=== PATIENT | female | born 1955 | race Caucasian/White ===

== ENCOUNTER 2019-11-27 10:34 | Emergency (ER) | payer BC ==
[2019-11-27] MEDS ORDERED: HYDROCODONE/APAP 5/325 MG TAB ONE (11:14)
--- NOTE | 2019-11-27 13:06 | RAD REPORT ---
EXAM DESCRIPTION: RAD - Hip Left 2 View - 11/27/2019 12:17 pm CLINICAL HISTORY: PAIN, acute onset COMPARISON: No comparisons FINDINGS: AP and frogleg views of the left hip were obtained. There is no fracture or dislocation. No AVN or focal femoral head abnormality seen. Degenerative kerr ges are present along the superior acetabular rim. No acute left hemipelvis finding. Prominent overlying soft tissue limits detail. No periarticular abnormality seen. IMPRESSION: Degenerative change along the superior acetabular rim. No acute findings seen.
[2019-11-27] MEDS ORDERED: LIDOCAINE 4% PATCH ONE (13:11)
--- NOTE | 2019-11-27 13:14 | ER ---
Nurse's Notes 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 Ebola Screen: No symptoms or risks identified at this time. Initial Sepsis Screen: Does the patient meet any 2 criteria? No. Patient's initial sepsis screen is negative. Does the patient have a suspected source of infection? No. Patient's initial sepsis screen is negative. Risk Assessment: Do you want to hurt yourself or someone else? Patient reports no desire to harm self or others. Onset of symptoms was November 27, 2019. 10:46 Method Of Arrival: Ambulatory hb 10:46 Acuity: ANGEL 4 hb Historical: - Allergies: 10:51 No Known Allergies; hb - Home Meds: 10:51 multivitamin with minerals oral oral [Active]; levothyroxine 137 mcg tab once daily hb [Active]; hydroxychloroquine 200 mg oral tab 2 times per day [Active]; sulfasalazine 500 mg Oral tab 1 tab twice a day [Active]; Prolia 60 mg/mL subcutaneous syrg 1 mL every 6 mo [Active]; Folic Acid Oral once daily [Active]; prednisone 10 mg Oral tab once daily [Active]; - PMHx: 10:51 Osteoporosis; RA; hb - PSHx: 10:51 Hysterectomy; Carpal Tunnel Repair; Tonsillectomy; hb - Immunization history:: Adult Immunizations up to date. - Social history:: Smoking status: Patient denies any tobacco usage or history of. Screenin:25 Abuse screen: Denies threats or abuse. Nutritional screening: No deficits noted. Tuberculosis screening: No symptoms or risk factors identified. Fall Risk None identified. Assessment: 11:00 General: Appears in no apparent distress. Behavior is calm, cooperative. Pain: Complains of pain in left hip Pain does not radiate. Pain Quality of pain is described as aching, Pain began 2 hours ago. Aggravated by weight bearing. Neuro: Level of Consciousness is awake, alert, Oriented to person, place, time, situation. Cardiovascular: Capillary refill < 3 seconds Patient's skin is warm and dry. Respiratory: Airway is patent Respiratory effort is even, unlabored, Respiratory pattern is regular, symmetrical. GI: No signs and/or symptoms were reported involving the gastrointestinal system. : No signs and/or symptoms were reported regarding the genitourinary system. EENT: Derm: No signs and/or symptoms reported regarding the dermatologic system. Musculoskeletal: Circulation, motion, and sensation intact. Capillary refill < 3 seconds, Range of motion: intact in all extremities. 12:00 Reassessment: Pt awaiting results from radiology. ah 12:15 Reassessment: Patient and/or family updated on plan of care and expected duration. Pain ah level reassessed. Patient is alert, oriented x 3, equal unlabored respirations, skin warm/dry/pink. Patient states symptoms have improved. Vital Signs: 10:46 BP 134 / 79; Pulse 78; Resp 16; Temp 97.8; Pulse Ox 99% on R/A; Weight 104.33 kg; hb Height 5 ft. 6 in. (167.64 cm); Pain 3/10; 11:56 BP 120 / 72; Pulse 73; Resp 18; Pulse Ox 92% ; ah 13:00 BP 106 / 74; Pulse 80; Resp 18; Pulse Ox 93% ; ah 10:46 Body Mass Index 37.12 (104.33 kg, 167.64 cm) hb ED Course: 10:41 Patient arrived in ED. am2 10:41 Bill Randall MD is Private Physician. am2 10:48 Triage completed. hb 10:51 Arm band placed on. hb 10:52 Kenneth Cortes NP is PHCP. pm1 10:52 Segundo Calderon MD is Attending Physician. pm1 11:05 Aiyana Amador, RN is Primary Nurse. ah 12:18 Hip Left 2 View XRAY In Process Unspecified. EDMS 13:00 No provider procedures requiring assistance completed. Patient did not have IV access ah during this emergency room visit. 13:26 Patient has correct armband on for positive identification. Bed in low position. Call light in reach. Side rails up X 1. Administered Medications: 11:10 Drug: [place] 5 mg-325 mg 1 tabs Route: PO; ah 13:35 Follow up: Response: No adverse reaction; Pain is decreased 13:07 Drug: Lidoderm 5 % (700 mg/patch) 1 patches Route: Topical; Site: affected area; 13:35 Follow up: Response: No adverse reaction Outcome: 13:11 Discharge ordered by . pm1 13:36 Discharged to home ambulatory. 13:36 Condition: good 13:36 Discharge instructions given to patient, Instructed on discharge instructions, follow up and referral plans. medication usage, Demonstrated understanding of instructions, follow-up care, medications, Prescriptions given X 2. 13:37 Patient left the ED. Signatures: Dispatcher [employer] EDMS Kenneth Cortes NP PATENT PROSECUTION PARALEGAL pm1 Aarti Brooks, RN RN Nadeen Starr am2 Aiyana Amador, RN RN
--- NOTE | 2019-11-27 13:14 | EDPHYS ---
Physician Documentation [facility] Name: Prudence Quinteros Age: 63 yrs Sex: Female : 1955 Arrival Date: 11/27/2019 Time: 10:41 Bed 19 Private MD: Bill Randall B ED Physician Segundo Calderon Historical: - Allergies: 11/26 10:51 No Known Allergies; hb - Home Meds: 10:51 multivitamin with minerals oral oral [Active]; levothyroxine 137 mcg tab once daily hb [Active]; hydroxychloroquine 200 mg oral tab 2 times per day [Active]; sulfasalazine 500 mg Oral tab 1 tab twice a day [Active]; Prolia 60 mg/mL subcutaneous syrg 1 mL every 6 mo [Active]; Folic Acid Oral once daily [Active]; prednisone 10 mg Oral tab once daily [Active]; - PMHx: 10:51 Osteoporosis; RA; hb - PSHx: 10:51 Hysterectomy; Carpal Tunnel Repair; Tonsillectomy; hb - Immunization history:: Adult Immunizations up to date. - Social history:: Smoking status: Patient denies any tobacco usage or history of. Vital Signs: 10:46 BP 134 / 79; Pulse 78; Resp 16; Temp 97.8; Pulse Ox 99% on R/A; Weight 104.33 kg; hb Height 5 ft. 6 in. (167.64 cm); Pain 3/10; 11:56 BP 120 / 72; Pulse 73; Resp 18; Pulse Ox 92% ; ah 13:00 BP 106 / 74; Pulse 80; Resp 18; Pulse Ox 93% ; ah 10:46 Body Mass Index 37.12 (104.33 kg, 167.64 cm) hb MDM: 10:52 Patient medically screened. pm1 12:26 Data reviewed: vital signs. Data interpreted: Pulse oximetry: on room air is 99 %. pm1 Interpretation: normal. 13:11 Counseling: I had a detailed discussion with the patient and/or guardian regarding: the pm1 historical points, exam findings, and any diagnostic results supporting the discharge/admit diagnosis, radiology results, the need for outpatient follow up, to return to the emergency department if symptoms worsen or persist or if there are any questions or concerns that arise at home. 11/26 11:01 Order name: Hip Left 2 View XRAY; Complete Time: 13:11 pm1 Administered Medications: 11:10 Drug: [place] 5 mg-325 mg 1 tabs Route: PO; 13:35 Follow up: Response: No adverse reaction; Pain is decreased 13:07 Drug: Lidoderm 5 % (700 mg/patch) 1 patches Route: Topical; Site: affected area; 13:35 Follow up: Response: No adverse reaction Disposition: 11/27/19 13:11 Discharged to Home. Impression: Pain in left hip. - Condition is Stable. - Discharge Instructions: Joint Pain, Hip Pain. - Prescriptions for Lidoderm 5 % Topical adhesive patch,medicated - apply 1 patch by TRANSDERMAL route once daily As needed; 30 Transdermal Patch. Tylenol- Codeine #3 300-30 mg Oral Tablet - take 2 tablets by ORAL route every 6 hours As needed; 20 tablet. - Medication Reconciliation Form, Thank You Letter, Antibiotic Education, Prescription Opioid Use form. - Follow up: Emergency Department; When: As needed; Reason: Worsening of condition. Follow up: Private Physician; When: 2 - 3 days; Reason: Recheck today's complaints, Continuance of care, Re-evaluation by your physician. - Problem is new. - Symptoms have improved. Signatures: Dispatcher [employer] EDKenneth Graham NP SPEECH AND HEARING CLINIC DIRECTOR pm1 Aarti Brooks, TANA RN Aiyana Amador RN RN Corrections: (The following items were deleted from the chart) 13:37 13:11 11/27/2019 13:11 Discharged to Home. Impression: Pain in left hip. Condition is ah Stable. Forms are Medication Reconciliation Form, Thank You Letter, Antibiotic Education, Prescription Opioid Use. Follow up: Emergency Department; When: As needed; Reason: Worsening of condition. Follow up: Private Physician; When: 2 - 3 days; Reason: Recheck today's complaints, Continuance of care, Re-evaluation by your physician. Problem is new. Symptoms have improved. pm1
[2019-11-27 13:43] VITALS: TEMP 97.8
[2019-11-27 13:45] VITALS: BP 106/74; O2SAT 93
== END 2019-11-27 13:37 | disposition home or self-care (01) ==
LOC: ER 10:34
DX: M25.552 Pain in left hip (principal)
CPT/HCPCS: 99283

== ENCOUNTER 2020-01-15 10:32 | Inpatient (IN) | payer BC ==
--- NOTE | 2020-01-15 11:29 | ER ---
Nurse's Notes [facility] Name: Prudence Quinteros Age: 64 yrs Sex: Female : 1955 Arrival Date: 01/15/2020 Time: 10:33 Bed 25 Private MD: Diagnosis: Coronavirus infection, unspecified;Pneumonia, unspecified organism;Hypoxemia Presentation: 01/14 10:35 Chief complaint: Patient states: 2 WK FEVER, DX COVID + 1 WK AGO, NOW WITH DYSPNEA. bp Coronavirus screen: Surgical mask placed on patient. Patient moved to private room, placed in contact and droplet isolation with eye protection until further assessment. Patient reports a cough. Patient reports shortness of breath or difficulty breathing. Patient reports a measured and/or subjective temperature greater than 100.4F. Patient reports contact with known and/or suspected case of COVID-19. Ebola Screen: No symptoms or risks identified at this time. Initial Sepsis Screen: Does the patient meet any 2 criteria? HR > 90 bpm. No. Patient's initial sepsis screen is negative. Does the patient have a suspected source of infection? No. Patient's initial sepsis screen is negative. Risk Assessment: Do you want to hurt yourself or someone else? Patient reports no desire to harm self or others. Onset of symptoms is unknown. 10:35 Method Of Arrival: Ambulatory bp 10:35 Acuity: ANGEL 2 bp Triage Assessment: 10:35 General: Appears in no apparent distress. uncomfortable, ill, obese, Behavior is bp cooperative, appropriate for age, anxious. Pain: Denies pain. EENT: No deficits noted. Neuro: No deficits noted. Cardiovascular: Rhythm is sinus tachycardia. Respiratory: Reports shortness of breath cough that is Onset: The symptoms/episode began/occurred at an unknown time. the patient has moderate shortness of breath. GI: No signs and/or symptoms were reported involving the gastrointestinal system. : No signs and/or symptoms were reported regarding the genitourinary system. Derm: No deficits noted. Musculoskeletal: No deficits noted. Historical: - Allergies: 10:51 No Known Allergies; bp - Home Meds: 10:51 sulfasalazine 500 mg Oral tab 1 tab twice a day [Active]; Prolia 60 mg/mL subcutaneous bp syrg 1 mL every 6 mo [Active]; prednisone 10 mg Oral tab once daily [Active]; multivitamin with minerals Oral [Active]; levothyroxine 137 mcg tab once daily [Active]; hydroxychloroquine 200 mg Oral tab 2 times per day [Active]; folic acid 1 mg oral tab 1 tab once daily [Active]; simvastatin 20 mg Oral tab 1 tab once daily [Active]; - PMHx: 10:51 RA; Osteoporosis; POLYMYALGIA RHEUMATICA; bp - PSHx: 10:51 Tonsillectomy; Hysterectomy; bp - Immunization history:: Adult Immunizations up to date. - Social history:: Smoking status: Patient denies any tobacco usage or history of. - Family history:: not pertinent. - Hospitalizations: : No recent hospitalization is reported. Screenin:35 Abuse screen: Denies threats or abuse. Denies injuries from another. Nutritional bp screening: No deficits noted. Tuberculosis screening: No symptoms or risk factors identified. Fall Risk None identified. Assessment: 10:35 General: SEE TRIAGE NOTE. bp 11:30 Reassessment: VS STABLE BUT PT DESAT WITH EXERTION. Cardiovascular: Rhythm is sinus bp tachycardia. Respiratory: Airway is patent Respiratory effort is even, labored, Breath sounds are coarse bilaterally. 12:27 Reassessment: ADMIT INITIATED. VS STABLE ON MONITOR. bp 14:00 Reassessment: PT PLACED ON NASAL CANNULA FOR COMFORT. VS STABLE ON MONITOR. bp 15:16 Reassessment: VS STABLE ON MONITOR. ADMIT IN PROCESS. bp 17:00 General: PT MOVED TO ER HOLD, SEE [facility]. bp Vital Signs: 10:35 BP 124 / 84; Pulse 110; Resp 22; Temp 97.7; Pulse Ox 93% on R/A; Weight 104.33 kg; bp Height 5 ft. 6 in. (167.64 cm); 11:30 BP 129 / 84; Pulse 109; Resp 32; Pulse Ox 93% ; bp 12:26 BP 125 / 69; Pulse 107; Resp 31; Pulse Ox 94% ; bp 13:17 BP 123 / 78; Pulse 105; Resp 23; Pulse Ox 90% on R/A; bp 15:14 BP 116 / 84; Pulse 104; Resp 21; Pulse Ox 94% on 2 lpm NC; bp 16:00 BP 126 / 69; Pulse 110; Resp 28; Temp 98.3; Pulse Ox 94% ; bp 17:00 BP 116 / 83; Pulse 100; Resp 28; Pulse Ox 93% ; bp 10:35 Body Mass Index 37.12 (104.33 kg, 167.64 cm) bp ED Course: 10:33 Patient arrived in ED. as 10:33 Be Paulino MD is Attending Physician. rn 10:35 Arm band placed on. bp 10:35 Patient has correct armband on for positive identification. Bed in low position. Call bp light in reach. Side rails up X2. 10:48 Keith Hoyt, TANA is Primary Nurse. bp 10:50 Triage completed. bp 11:10 Inserted saline lock: 20 gauge in right forearm, using aseptic technique. Blood bp collected. 11:27 Patrick Veronica DO is Hospitalizing Provider. rn 11:42 CXR XRAY In Process Unspecified. EDMS 17:40 No provider procedures requiring assistance completed. Patient admitted, IV remains in bp place. 18:51 Type And Screen Sent. [facility] 18:51 T\T\S collected, blood band applied to patient. 5 Administered Medications: 11:10 Drug: Decadron - Dexamethasone 10 mg Route: IVP; Site: right forearm; bp 12:25 Follow up: Response: Marked relief of symptoms bp Outcome: 11:28 Decision to Hospitalize by Provider. rn 17:41 Admitted to ER Hold. Please see [facility] for further documentation. bp 07 17:38 Patient left the ED. sv Signatures: Dispatcher [employer] EDMS Yue Millard RN RN sv Martinez, Amelia as Nieto, Roman, MD MD rn Martinez, Maria [facility] Keith Hoyt RN RN bp Corrections: (The following items were deleted from the chart) 07 12:28 12:26 Reassessment: VS STABLE BUT PT DESAT WITH EXERTION bp bp 12:28 12:26 Cardiovascular: Rhythm is sinus tachycardia bp bp 12:28 12:26 Respiratory: Airway is patent Respiratory effort is even, labored, Breath sounds bp are coarse bilaterally. bp 15:14 12:26 BP 125 / 69; Pulse 107bpm; Resp 31bpm; Temp 94F; bp bp
--- NOTE | 2020-01-15 11:29 | EDPHYS ---
Physician Documentation [facility] Name: Prudence Quinteros Age: 64 yrs Sex: Female : 1955 Arrival Date: 01/15/2020 Time: 10:33 Bed 25 Private MD: ED Physician Be Paulino HPI: 01/14 10:51 This 64 yrs old Female presents to ER via Ambulatory with complaints of rn Shortness Of Breath - covid+. 10:51 The patient has shortness of breath at rest, with light activity. Onset: The rn symptoms/episode began/occurred 1 week(s) ago. Duration: The symptoms are continuous. The patient's shortness of breath is aggravated by exertion, is alleviated by nothing. Severity of symptoms: At their worst the symptoms were moderate in the emergency department the symptoms are unchanged. The patient has not experienced similar symptoms in the past. The patient has been recently seen by a physician:. Seen by PCP recently, diagnosed with COVID, with COVID as well but not ill, patient reports increased sob at rest and worse with exertion, + fatigue and loose stool, + loss of sense of taste and smell. No chronic lung problems, but is on steroids and plaquenil for RA. . Historical: - Allergies: 10:51 No Known Allergies; bp - Home Meds: 10:51 sulfasalazine 500 mg Oral tab 1 tab twice a day [Active]; Prolia 60 mg/mL subcutaneous bp syrg 1 mL every 6 mo [Active]; prednisone 10 mg Oral tab once daily [Active]; multivitamin with minerals Oral [Active]; levothyroxine 137 mcg tab once daily [Active]; hydroxychloroquine 200 mg Oral tab 2 times per day [Active]; folic acid 1 mg oral tab 1 tab once daily [Active]; simvastatin 20 mg Oral tab 1 tab once daily [Active]; - PMHx: 10:51 RA; Osteoporosis; POLYMYALGIA RHEUMATICA; bp - PSHx: 10:51 Tonsillectomy; Hysterectomy; bp - Immunization history:: Adult Immunizations up to date. - Social history:: Smoking status: Patient denies any tobacco usage or history of. - Family history:: not pertinent. - Hospitalizations: : No recent hospitalization is reported. ROS: 10:51 Constitutional: Negative for fever, chills, and weight loss, Eyes: Negative for injury, rn pain, redness, and discharge, Cardiovascular: Negative for chest pain, palpitations, and edema, Respiratory: + sob and cough Abdomen/GI: Negative for abdominal pain, nausea, vomiting, + loose stool MS/Extremity: Negative for injury and deformity, Skin: Negative for injury, rash, and discoloration, Neuro: Negative for numbness, tingling, and seizure. Exam: 10:51 Constitutional: This is a well developed, well nourished patient who is awake, alert, rn mild tachypnea, slowly ambulatory to room Head/Face: Normocephalic, atraumatic. ENT: dry MM Cardiovascular: Tachycardic. No pulse deficits. Respiratory: + mild tachypnea, no retractions Abdomen/GI: soft, non-tender Skin: Warm, dry MS/ Extremity: Pulses equal, no cyanosis. Neuro: Awake and alert, GCS 15 12:35 ECG was reviewed by the Attending Physician. rn Vital Signs: 10:35 BP 124 / 84; Pulse 110; Resp 22; Temp 97.7; Pulse Ox 93% on R/A; Weight 104.33 kg; bp Height 5 ft. 6 in. (167.64 cm); 11:30 BP 129 / 84; Pulse 109; Resp 32; Pulse Ox 93% ; bp 12:26 BP 125 / 69; Pulse 107; Resp 31; Pulse Ox 94% ; bp 13:17 BP 123 / 78; Pulse 105; Resp 23; Pulse Ox 90% on R/A; bp 15:14 BP 116 / 84; Pulse 104; Resp 21; Pulse Ox 94% on 2 lpm NC; bp 16:00 BP 126 / 69; Pulse 110; Resp 28; Temp 98.3; Pulse Ox 94% ; bp 17:00 BP 116 / 83; Pulse 100; Resp 28; Pulse Ox 93% ; bp 10:35 Body Mass Index 37.12 (104.33 kg, 167.64 cm) bp MDM: 10:34 Patient medically screened. rn 11:23 Differential diagnosis: pneumonia, Pneumothorax pulmonary edema, reactive airway rn disease, Sepsis. Data reviewed: vital signs, nurses notes, lab test result(s), radiologic studies, plain films, and as a result, I will admit patient. Test interpretation: by ED physician or midlevel provider: plain radiologic studies, CXR shows multi-focal pneumonia, worst in RUL. Counseling: I had a detailed discussion with the patient and/or guardian regarding: the historical points, exam findings, and any diagnostic results supporting the discharge/admit diagnosis, radiology results, the need for further work-up and treatment in the hospital. Admission orders: after a detailed discussion of the patient's condition and case, the admit orders are written by me. ED course: Pt with COVID, CXR with multifocal pneumonia, oxygen saturation in 80s at home, has been been zithromax and omnicef at home, and worsening, admitted to Dr. Veronica. . 01/14 10:46 Order name: Blood Culture Adult (2) rn 01/14 10:46 Order name: BMP; Complete Time: 12: 01/14 10:46 Order name: C-Reactive Protein; Complete Time: 12: 01/14 10:46 Order name: CBC with Diff; Complete Time: 13:22 01/14 10:46 Order name: D-Dimer; Complete Time: 12: 01/14 10:46 Order name: Ferritin; Complete Time: 12: 01/14 10:46 Order name: Lactate; Complete Time: 12: rn 01/14 10:46 Order name: Procalcitonin; Complete Time: 12:40 rn 01/14 10:46 Order name: PT-INR; Complete Time: 12: 01/14 10:46 Order name: Ptt, Activated; Complete Time: 12: 01/14 10:46 Order name: Troponin (emerg Dept Use Only); Complete Time: 12: 01/14 10:46 Order name: Blood Culture [facility] 01/14 13:16 Order name: Manual Differential; Complete Time: 13:22 [facility] 01/14 18:29 Order name: Type And Screen em 01/14 10:46 Order name: CXR XRAY; Complete Time: 12:26 rn 01/14 10:46 Order name: EKG; Complete Time: 10:47 rn 01/14 10:46 Order name: Cardiac monitoring; Complete Time: 10:55 rn 01/14 10:46 Order name: Droplet/Contact Precautions; Complete Time: 10:55 rn 01/14 10:46 Order name: EKG - Nurse/Tech; Complete Time: 12:24 rn 01/14 10:46 Order name: IV Start; Complete Time: 12:24 rn 01/14 10:46 Order name: Labs collected and sent; Complete Time: 12:24 rn 01/14 10:46 Order name: O2 Per Protocol; Complete Time: 10:55 rn 01/14 10:46 Order name: O2 Sat Monitoring; Complete Time: 10:56 rn 01/14 20:03 Order name: Type and Screen EDNE 01/14 22:45 Order name: ABO/RH no charge EDNE 01/15 08:05 Order name: CBC with Automated Diff EDMS 01/15 08:13 Order name: Comprehensive Metabolic Panel EDMS 01/15 09:32 Order name: Manual Differential EDMS EC:35 Rate is 103 beats/min. Rhythm is regular. QRS [place] is Normal. MI interval is normal. rn QRS interval is normal. QT interval is normal. No Q waves. T waves are Normal. No ST changes noted. Clinical impression: Sinus tachycardia. Interpreted by me. Reviewed by me. Administered Medications: 11:10 Drug: Decadron - Dexamethasone 10 mg Route: IVP; Site: right forearm; bp 12:25 Follow up: Response: Marked relief of symptoms bp Disposition: 01/15/20 11:28 Hospitalization ordered by Patrick Veronica for Inpatient Admission. Preliminary diagnosis are Coronavirus infection, unspecified, Pneumonia, unspecified organism, Hypoxemia. - Bed requested for [facility] ER HOLD. - Status is Inpatient Admission. sv - Condition is Stable. - Problem is new. - Symptoms are unchanged. Signatures: Dispatcher [employer] EDNE Yue Millard RN RN sv Williams, Irene, RN RN iw Be Paulino MD MD rn Attema, Lee, CORN HUSK BALER-C CORN HUSK BALER-Cla1 Keith Hoyt, TANA RN bp Corrections: (The following items were deleted from the chart) 12:24 10:46 Fry ordered. rn bp 16:55 11:28 Hospitalization Ordered by Patrick Veronica DO for Inpatient Admission. Preliminary diagnosis is Coronavirus infection, unspecified; Pneumonia, unspecified organism; Hypoxemia. Bed requested for Telemetry/MedSurg (Inpatient). Status is Inpatient Admission. Condition is Stable. Problem is new. Symptoms are unchanged. rn 01/15 17:38 01/14 16:55 01/15/2020 11:28 Hospitalization Ordered by Patrick Veronica DO for Inpatient Admission. Preliminary diagnosis is Coronavirus infection, unspecified; Pneumonia, unspecified organism; Hypoxemia. Bed requested for [facility] ER HOLD. Status is Inpatient Admission. Condition is Stable. Problem is new. Symptoms are unchanged. iw
[2020-01-15] MEDS ORDERED: dexAMETHasone 10 MG/ML VIAL ONE (11:35)
[2020-01-15 11:57] LABS: Absolute Lymphocytes (CBC) 0.4 K/uL (0.7-4.9); Basophils % 0.1 % (0-1.3); Hematocrit 34.2 % (36.0-45.0); Lymphocytes % 4.4 % (15.3-44.8); MPV 7.1 fL (7.6-11.3); RBC Red Blood Cell Count 3.87 M/uL (3.86-4.86)
[2020-01-15 12:03] LABS: Protime INR 1.38
[2020-01-15 12:20] LABS: BUN Blood Urea Nitrogen 14 mg/dL (7-18); Bicarbonate 25 mmol/L (21-32); Ferritin 1059.7 ng/mL (8-388); Glucose Level 124 mg/dL (74-106); Sodium Level 137 mmol/L (136-145); Troponin (Emerg Dept Use Only) < 0.02 ng/mL (0.0-0.045)
--- NOTE | 2020-01-15 12:23 | RAD REPORT ---
EXAM DESCRIPTION: Liz Single View01/15/2020 11:42 am CLINICAL HISTORY: Cough COMPARISON: none FINDINGS: Right upper lobe consolidation Mild bilateral additional lung opacities Heart is normal size There may mild mediastinal and right hilar lymphadenopathy IMPRESSION: Bilateral pulmonary opacities consistent with pneumonia
[2020-01-15 13:18] LABS: Blood Morphology Comment NOT SEEN (NOT SEEN); Platelet Estimate ADEQ
--- NOTE | 2020-01-15 13:38 | P.HP ---
Certification for Inpatient Patient admitted to: Inpatient With expected LOS: >2 Midnights Patient will require the following post-hospital care: None Practitioner: I am a practitioner with admitting privileges, knowledge of patient current condition, hospital course, and medical plan of care. Services: Services provided to patient in accordance with Admission requirements found in Title 42 Section 412.3 of the Code of Federal Regulations <Gus Pascal - Last Filed: 01/15/20 13:30> Patient admitted to: Inpatient With expected LOS: >2 Midnights <Patrick Veronica - Last Filed: 01/15/20 15:21> Patient History Date of Service: 01/15/20 Primary Care Provider: Dr. Randall Reason for admission: Hypoxia secondary to COVID History of Present Illness: 64 old female with medical history of rheumatoid arthritis, polymyalgia rheumatica, osteoporosis presents emergency department with a 2 week history of low-grade fevers, shortness of breath. Patient reports that she being more more short of breath over time. Patient was diagnosed with COVID about a week and a half ago and has been seeing her primary care doctor for management. Patient is currently on prednisone 10 mg once daily, has taken Zithromax at home without improvement. Patient has been monitoring her home oxygen levels with pulse oximetry and today's however oxygen level to be 86% on room air. Patient was evaluated in the emergency department and found to be tachypneic with oxygen saturations around 88-90% on room air while resting. Patient states that she is feels very short of breath. ED provider wishes to admit patient for further evaluation management. When I saw the patient in the emergency department she was sitting in a chair next the structure, respiratory rate was greater than 30, room air saturation was 89%. Had discussion with patient and her about the course for illness and her expectations. Patient be admitted for further evaluation and management. Home medications list reviewed: Yes - Past Medical/Surgical History Has patient received pneumonia vaccine in the past: No Diabetic: No -: Rheumatoid arthritis -: Polymyalgia rheumatica -: Osteoporosis -: Laparotomy -: Tonsillectomy Psychosocial/ Personal History: Patient lives at home with her . - Family History Family History: Reviewed- Non-Contributory - Social History Smoking Status: Former smoker Alcohol use: No CD- Drugs: No Caffeine use: Yes Place of Residence: Home <Gus Pascal - Last Filed: 01/15/20 13:30> Date of Service: 01/15/20 <Patrick Veronica - Last Filed: 01/15/20 15:21> Review of Systems General: Fever Respiratory: Cough, Shortness of Breath <Gus Pascal - Last Filed: 01/15/20 13:30> Physical Examination - Physical Exam General: Alert, In no apparent distress, Oriented x3 HEENT: Atraumatic, Normocephalic Neck: Supple Respiratory: Diminished (Bilaterally) Cardiovascular: No edema Gastrointestinal: Normal bowel sounds, Soft and benign Musculoskeletal: No contractures, No erythema, No tenderness Integumentary: No significant lesion, No tenderness/swelling, No erythema Neurological: Normal gait, Normal speech, Normal strength at 5/5 x4 extr, Normal tone - Studies Laboratory Data (last 24 hrs) 01/15/20 11:45: PT 16.2 H, INR 1.38, APTT 46.4 H 01/15/20 11:45: WBC 8.2, Hgb 11.4 L, Hct 34.2 L, Plt Count 350 01/15/20 11:45: Sodium 137, Potassium 4.0, BUN 14, Creatinine 0.71, Glucose 124 H <Gus Pascal - Last Filed: 01/15/20 13:30> - Studies Laboratory Data (last 24 hrs) 01/15/20 11:45: PT 16.2 H, INR 1.38, APTT 46.4 H 01/15/20 11:45: WBC 8.2, Hgb 11.4 L, Hct 34.2 L, Plt Count 350 01/15/20 11:45: Sodium 137, Potassium 4.0, BUN 14, Creatinine 0.71, Glucose 124 H <Patrick Veronica - Last Filed: 01/15/20 15:21> Assessment and Plan - Plan Assessment Acute respiratory failure with hypoxia secondary to COVID pneumonia Rheumatoid arthritis Polymyalgia rheumatica Plan Acute respiratory failure with hypoxia secondary to COVID pneumonia: Patient to be started on Decadron 4 mg IV q. 8, oral thiamine, oral zinc, oral folic acid, Levaquin 500 mg p.o., Lasix 20 mg p.o. daily. Will provide patient with oxygen as needed, pulmonology has been consulted on this case. DVT prophylaxis with Lovenox 40 mg subcutaneous once daily. Discussed the use of convalescent plasma with patient, she will discuss this with the rest her family to determine if this is something that she desires. The patient be admitted for further management. Appreciate further input from pulmonology. Anticipate clinical improvement next 48-72 hr at which time patient to be discharged. Rheumatoid arthritis: Will continue with IV steroids at this time, provide patient with pain medication as needed. Also continue patient's home medications. Polymyalgia rheumatica: Will continue IV steroids at this time, will continue patient's home medications. Discharge Plan: Home Plan to discharge in: 48 Hours - Advance Directives Does patient have a Living Will: No Does patient have a Durable POA for Healthcare: No - Code Status/Comfort Care Code Status Assessed: Yes Code Status: Do Not Attempt Resuscitat Critical Care: No Time Spent Managing Pts Care (In Minutes): 55 <Gus Pascal - Last Filed: 01/15/20 13:30> - Plan Case discussed in detail with nurse practitioner. Agree with evaluation, assessment and plan of care. Continue with current medications. Will consider coalescent plasma in the next 24 hr. <Patrick Veronica - Last Filed: 01/15/20 15:21>
[2020-01-15] MEDS ORDERED: ACETAMINOPHEN 500 MG TAB PO PRN (17:54)
[2020-01-15] MEDS ORDERED: HYDROCODONE/APAP 7.5/325 MG TAB PO PRN (17:54)
[2020-01-15] MEDS ORDERED: ONDANSETRON 4 MG/2 ML VIAL IV PRN (17:54)
[2020-01-15] MEDS ORDERED: TRAMADOL HCL 50 MG TAB PO PRN (17:54)
[2020-01-15] MEDS ORDERED: levoFLOXacin 750 MG TAB PO ONE (18:08)
[2020-01-15] MEDS ORDERED: Levofloxacin 750mg IV 750 MG/150 ML BAG IV SCH (18:22)
[2020-01-15] MEDS: dexAMETHasone 10 MG/ML VIAL IV SCH (20:15)
[2020-01-15] MEDS ORDERED: dexAMETHasone 4 MG/ML VIAL ONE (20:27)
[2020-01-15] MEDS ORDERED: Levofloxacin 750mg IV 750 MG/150 ML BAG IV ONE (20:28)
[2020-01-15] MEDS: SULFASALAZINE 500 MG E.C. TAB PO SCH (21:00)
[2020-01-15] MEDS: HYDROXYCHLOROQUINE 200MG TAB PO SCH (21:00)
[2020-01-15] MEDS ORDERED: ATORVASTATIN 10 MG TAB PO SCH (21:00)
[2020-01-15 23:38] VITALS: BMI 37.1
[2020-01-16] MEDS: dexAMETHasone 10 MG/ML VIAL IV SCH ×2 (01:30→09:00)
[2020-01-16] MEDS ORDERED: dexAMETHasone 4 MG/ML VIAL ONE ×2 (01:33→08:11)
[2020-01-16] MEDS ORDERED: NA CHLORIDE 0.9% 250 ML ONE (04:08)
[2020-01-16] MEDS ORDERED: LEVOTHYROXINE SOD 0.125 MG TAB PO SCH (06:30)
[2020-01-16] MEDS ORDERED: LEVOTHYROXINE SOD 0.112 MG TAB PO SCH (07:30)
[2020-01-16] MEDS ORDERED: LEVOTHYROXINE SOD 0.025 MG TAB PO SCH (07:30)
[2020-01-16 08:05] LABS: Absolute Lymphocytes (CBC) 0.6 K/uL (0.7-4.9); Basophils % 0.1 % (0-1.3); Hematocrit 32.2 % (36.0-45.0); Lymphocytes % 8.1 % (15.3-44.8); MPV 7.3 fL (7.6-11.3); RBC Red Blood Cell Count 3.52 M/uL (3.86-4.86)
[2020-01-16] MEDS ORDERED: FOLIC ACID 1 MG TABLET ONE (08:11)
[2020-01-16] MEDS ORDERED: THIAMINE HCL 100 MG TABLET ONE (08:11)
[2020-01-16] MEDS ORDERED: ENOXAPARIN 40 MG/0.4 ML SQ ONE (08:11)
[2020-01-16 08:12] LABS: Albumin 2.5 g/dL (3.4-5.0); Bilirubin Total 0.3 mg/dL (0.2-1.0); Potassium 4.3 mmol/L (3.5-5.1); Protein, Total 7.4 g/dL (6.4-8.2)
[2020-01-16] MEDS ORDERED: levoFLOXacin 500 MG TAB PO SCH (09:00)
[2020-01-16] MEDS: SULFASALAZINE 500 MG E.C. TAB PO SCH (09:00)
[2020-01-16] MEDS ORDERED: THIAMINE HCL 100 MG TABLET PO SCH (09:00)
[2020-01-16] MEDS ORDERED: FUROSEMIDE 20 MG TABLET PO SCH (09:00)
[2020-01-16] MEDS: HYDROXYCHLOROQUINE 200MG TAB PO SCH (09:00)
[2020-01-16] MEDS ORDERED: ENOXAPARIN 40 MG/0.4 ML SQ SCH (09:00)
[2020-01-16] MEDS ORDERED: FOLIC ACID 1 MG TABLET PO SCH (09:00)
[2020-01-16] MEDS ORDERED: ZINC SULFATE 220 MG CAP PO SCH (09:00)
[2020-01-16 09:31] LABS: Anisocytosis 1+; Blood Morphology Comment NOTED (NOT SEEN); Platelet Estimate ADEQ
--- NOTE | 2020-01-16 11:04 | P.CNS ---
Date of Consult: 01/16/20 Primary Care Provider: Dr. Randall Chief Complaint: Hypoxia secondary to COVID History of Present Illness: Patient is 64 years of age multiple medical problems. She is on steroids immunosuppressant therapy patient does take prednisone at home was treated with Zithromax with no improvement admitted with hypoxemia the received convalescent plasma as currently doing much better room-air saturations are satisfactory History of rheumatoid arthritis Allergies No Known Allergies Allergy (Unverified 01/15/20 17:44) Home Medications: Folic Acid 1 mg PO DAILY 01/15/20 Hydroxychloroquine [Plaquenil] 200 mg PO BID 01/15/20 Levothyroxine Sodium [Synthroid] 1 tab PO [id number] 01/15/20 Simvastatin 20 mg PO BEDTIME 01/15/20 predniSONE [Deltasone*] 10 mg PO DAILY 01/15/20 [address]ALAzine [Sulf[address]azine Dr] 1,000 mg PO BID 01/15/20 - Past Medical/Surgical History Diabetic: No -: Rheumatoid arthritis -: Polymyalgia rheumatica -: Osteoporosis -: Laparotomy -: hysterectomy -: Tonsillectomy -: Carpal tunnel repair Psychosocial/ Personal History: Patient lives at home with her . - Family History Mother Notes: Frequent infections from sepsis - Social History Alcohol use: No CD- Drugs: No Caffeine use: Yes Place of Residence: Home Review of Systems General: Weakness Respiratory: Shortness of Breath Physical Examination Temp Pulse Resp BP Pulse Ox 97 F 81 20 114/75 98 01/16/20 04:25 01/16/20 04:25 01/16/20 04:25 01/16/20 04:25 01/16/20 04:25 General: Other (Deferred) Laboratory Data (last 24 hrs) 01/15/20 11:45: PT 16.2 H, INR 1.38, APTT 46.4 H 01/15/20 11:45: WBC 8.2, Hgb 11.4 L, Hct 34.2 L, Plt Count 350 01/15/20 11:45: Sodium 137, Potassium 4.0, BUN 14, Creatinine 0.71, Glucose 124 H - Problems (1) Pneumonia due to human coronavirus Current Visit: Yes Status: Acute Plan: Patient is 64 years of age admitted with hypoxemia most likely she has pneumonia due to carlton virus chest x-ray shows bilateral changes her patient is doing well as not require home oxygen discharge her on higher dose of prednisone 20 mg twice a day for a week vital signs oxygenation stable labs reviewed no antibiotics needed
--- NOTE | 2020-01-16 11:49 | P.DS ---
Admission Date: 01/15/20 Discharge Date: 01/16/20 Primary Care Provider: Dr. Randall Disposition: ROUTINE DISCHARGE Discharge Condition: GOOD Reason for Admission: Hypoxia secondary to COVID Consultations: Pulmonary-Dr. Espinoza Procedures: CXR: FINDINGS: Right upper lobe consolidation Mild bilateral additional lung opacities Heart is normal size There may mild mediastinal and right hilar lymphadenopathy IMPRESSION: Bilateral pulmonary opacities consistent with pneumonia Medical Problem List: Acute respiratory failure with hypoxia secondary to bilateral coli pneumonia Rheumatoid arthritis/polymyalgia rheumatica on chronic steroids Hypothyroidism Hyperlipidemia Elevated liver function likely related to medication-statin with suspected underlying fatty liver Obesity, BMI 37 Brief History of Present Illness: 64-year-old female with history of rheumatoid arthritis, polymyalgia rheumatica on chronic steroids, hypothyroidism, hyperlipidemia presented with 2 weeks of low-grade fevers and shortness of breath. Patient was diagnosed with COVID 19 infection about 2 weeks ago. The patient was seen by her PCP. She had been on medication without any relief. She presented to the ER with oxygen saturations around 88%. Patient was admitted for further evaluation and treatment. Hospital Course: Patient presented with acute respiratory failure with hypoxia secondary to bilateral COVID 19 pneumonia. Patient failed outpatient treatment. The patient was treated in the course of her stay. Patient seen and evaluated by pulmonology. The patient received convalescent plasma. The patient has improved. Shortness of breath has significantly improved. Vital signs stable. Will have social insurance analyst evaluate for home oxygen at discharge. Patient likely requires 1 L per nasal cannula. At discharge. Pulmonology recommends to continue prednisone 20 mg 1 pill twice daily for 7 days. Thereafter patient may continue with her regular dose of chronic steroids 10 mg daily. The patient may also continue with zinc and thiamine supplementation. Recommend follow up with her PCP in 1 week to follow up this hospitalization. This was addressed in detail with her PCP. Patient may also follow up with pulmonology in 1 week to monitor her progress. Recommend to recheck chest x-ray in 2-4 weeks to monitor resolution. Patient will continue quarantine for at least 14 days. Patient will continue with social distancing, mask and hand washing. CDC guidelines will be provided. Patient with underlying rheumatoid arthritis/polymyalgia rheumatica on chronic steroids. As mentioned above the patient will be on steroid treatment for COVID 19 infection. Her steroid will be tapered to her normal dose of 10 mg daily after 1 week. The patient will also continue with her home medications of plaquenil and sulfasalazine. Recommend follow up with Rheumatology as directed. Patient with hypothyroidism. At discharge she will continue with her current medication. Patient had elevated liver function likely related to her stat medication. Patient likely with underlying fatty liver. This was discussed in detail with her PCP. Recommend to hold her statin medication for at least 2 weeks. Recommend to recheck lab-CMP in 1-2 weeks to monitor her progress. Vital Signs/Physical Exam: Temp Pulse Resp BP Pulse Ox 97.6 F 78 28 H 122/70 97 01/16/20 08:00 01/16/20 08:00 01/16/20 08:00 01/16/20 08:00 01/16/20 08:00 General: Alert, In no apparent distress, Oriented x3, Cooperative HEENT: Atraumatic Neck: Supple Respiratory: Clear to auscultation bilaterally Cardiovascular: Normal pulses, Regular rate/rhythm Gastrointestinal: Normal bowel sounds, Soft and benign, Non-distended Integumentary: No tenderness/swelling, No erythema, No warmth, No cyanosis Neurological: Normal speech, Normal strength at 5/5 x4 extr, Normal tone, Normal affect Laboratory Data at Discharge: WBC 7.3 K/uL (4.3-10.9) 01/16/20 07:05 Hgb 10.9 g/dL (12.0-15.0) L 01/16/20 07:05 Hct 32.2 % (36.0-45.0) L 01/16/20 07:05 Plt Count 334 K/uL (152-406) 01/16/20 07:05 PT 16.2 SECONDS (9.5-12.5) H 01/15/20 11:45 INR 1.38 01/15/20 11:45 APTT 46.4 SECONDS (24.3-36.9) H 01/15/20 11:45 Sodium 140 mmol/L (136-145) 01/16/20 07:05 Potassium 4.3 mmol/L (3.5-5.1) 01/16/20 07:05 BUN 22 mg/dL (7-18) H 01/16/20 07:05 Creatinine 0.72 mg/dL (0.55-1.3) 01/16/20 07:05 Glucose 124 mg/dL (74-106) H 01/16/20 07:05 Total Bilirubin 0.3 mg/dL (0.2-1.0) 01/16/20 07:05 AST 73 U/L (15-37) H 01/16/20 07:05 ALT 137 U/L (12-78) H 01/16/20 07:05 Alkaline Phosphatase 358 U/L (45-117) H 01/16/20 07:05 Home Medications: Folic Acid 1 mg PO DAILY 01/15/20 Hydroxychloroquine [Plaquenil*] 200 mg PO BID 01/15/20 Levothyroxine Sodium [Synthroid] 1 tab PO [id number] 01/15/20 predniSONE [Deltasone*] 10 mg PO DAILY 01/15/20 sulfaSALAzine [Sulfasalazine Dr] 1,000 mg PO BID 01/15/20 Thiamine HCl 100 mg PO DAILY #30 tablet 01/16/20 Zinc Sulfate [Zinc Sulfate*] 220 mg PO DAILY #30 cap 01/16/20 predniSONE [Prednisone*] 20 mg PO BID #14 tab 01/16/20 New Medications: predniSONE [Prednisone*] 20 mg PO BID #14 tab Thiamine HCl 100 mg PO DAILY #30 tablet Zinc Sulfate [Zinc Sulfate*] 220 mg PO DAILY #30 cap Patient Discharge Instructions: 1. Recommend follow up with her PCP in 1 week. 2. Patient presented with acute respiratory failure with hypoxia secondary to bilateral COVID 19 pneumonia. Patient failed outpatient treatment. The patient was treated in the course of her stay. Patient seen and evaluated by pulmonology. The patient received convalescent plasma. The patient has improved. Shortness of breath has significantly improved. Vital signs stable. Will have social insurance analyst evaluate for home oxygen at discharge. Patient likely requires 1 L per nasal cannula. At discharge. Pulmonology recommends to continue prednisone 20 mg 1 pill twice daily for 7 days. Thereafter patient may continue with her regular dose of chronic steroids 10 mg daily. The patient may also continue with zinc and thiamine supplementation. Recommend follow up with her PCP in 1 week to follow up this hospitalization. This was addressed in detail with her PCP. Patient may also follow up with pulmonology in 1 week to monitor her progress. Recommend to recheck chest x-ray in 2-4 weeks to monitor resolution. Patient will continue quarantine for at least 14 days. Patient will continue with social distancing, mask and hand washing. CDC guidelines will be provided. Patient with underlying rheumatoid arthritis/polymyalgia rheumatica on chronic steroids. As mentioned above the patient will be on steroid treatment for COVID 19 infection. Her steroid will be tapered to her normal dose of 10 mg daily after 1 week. The patient will also continue with her home medications of plaquenil and sulfasalazine. Recommend follow up with Rheumatology as directed. 3. Patient with hypothyroidism. At discharge she will continue with her current medication. 4. Patient had elevated liver function likely related to her stat medication. Patient likely with underlying fatty liver. This was discussed in detail with her PCP. Recommend to hold her statin medication for at least 2 weeks. Recommend to recheck lab-CMP in 1-2 weeks to monitor her progress. Diet: AHA Activity: Fall precautions Time spent managing pt's care (in minutes): 55
[2020-01-16 12:43] VITALS: O2SAT 98
[2020-01-16 17:38] VITALS: BP 139/79; TEMP 97.8
== END 2020-01-16 17:38 | disposition home or self-care (01) | DRG 177 ==
LOC: ER 10:32 → ERHOLD 13:21
PROVIDERS: ADMIT Family Medicine; ATTEND Family Medicine
DX: U07.1 COVID-19 (principal); J12.89 Other viral pneumonia; J96.01 Acute respiratory failure with hypoxia; M35.3 Polymyalgia rheumatica; M06.9 Rheumatoid arthritis, unspecified; M81.0 Age-related osteoporosis without current pathological fracture; E66.9 Obesity, unspecified; R79.89 Other specified abnormal findings of blood chemistry; Z68.37 Body mass index [BMI] 37.0-37.9, adult; Z79.52 Long term (current) use of systemic steroids; Z87.891 Personal history of nicotine dependence
CPT/HCPCS: 36415; 36430; 71045; 80048; 80053; 82728; 83605; 84145; 84484; 85025; 85379; 85610; 85730; 86140; 86850; 86900; 86901; 86927; 87040; 96374; 99285; J1100; J1650; J7050